=== PATIENT | male | born 1950 | race Caucasian/White ===

== ENCOUNTER 2019-10-24 17:06 | Inpatient (IN) | payer MEDICARE ==
[~2019-10-24] VITALS: Ht 170.2 cm; Wt 88.6 kg
[2019-10-24 17:20] VITALS: BP 119/51
[2019-10-24] MEDS ORDERED: ELIQUIS5 MG PO (17:37)
[2019-10-24 18:18] LABS: ABSOLUTE LYMPHOCYTES 0.7 thou/uL (0.8-5.3); ABSOLUTE MONOCYTES 0.9 thou/uL (0.0-1.2); ABSOLUTE NEUTROPHILS 8.5 thou/uL (1.6-8.1); BASOPHILS 0.4 %; HEMATOCRIT 38.2 % (42.0-52.0); HEMOGLOBIN 13.6 gm/dL (14.0-18.0); LYMPHOCYTES 6.6 %; MCH 31.3 pg (26.0-34.0); MCHC 35.5 g/dL (28.0-37.0); MCV 88.2 fL (80.0-100.0); MONOCYTES 8.5 %; MPV 8.7 fl. (7.2-11.1); NUCLEATED RBCS 0 /100WBC; PLATELET COUNT* 144 thou/uL (150-400); POLYS 84.5 %; RBC 4.33 mil/uL (4.50-6.00); RDW-CV 13.7 % (10.5-14.5); WBC 10.1 thou/uL (4.0-11.0)
[2019-10-24 18:29] LABS: CALCIUM 8.8 mg/dL (8.5-10.1); CREATININE 1.8 mg/dL (0.6-1.3); POTASSIUM 3.2 mmol/L (3.5-5.1)
[2019-10-24 18:31] LABS: APTT 37.5 Seconds (25.0-31.3); INR 1.1; PROTIME 10.8 Seconds (9.20-11.50)
[2019-10-24 18:34] LABS: ALBUMIN 3.3 g/dL (3.4-5.0); TOTAL PROTEIN 8.2 g/dL (6.4-8.2)
[2019-10-24 20:56] LABS: URINE BILIRUBIN NEGATIVE (Negative); URINE BLOOD 2+ (Negative); URINE CLARITY SL CLOUDY; URINE COLOR YELLOW; URINE GLUCOSE-RANDOM NEGATIVE (Negative); URINE KETONES NEGATIVE (Negative); URINE LEUKOCYTES-REFLEX 1+ (Negative); URINE NITRITE-REFLEX NEGATIVE (Negative); URINE PROTEIN 2+ (Negative); URINE SPECIFIC GRAVITY 1.015 (1.005-1.030)
[2019-10-24 21:01] LABS: MAGNESIUM 1.6 mg/dL (1.8-2.4)
[2019-10-24 21:02] LABS: AMP/METHAMP Negative (Negative); BARBITURATES Negative (Negative); BENZODIAZEPINES Negative (Negative); COCAINE Negative (Negative); METHADONE Negative (Negative); OPIATES Negative (Negative); PCP Negative (Negative); THC Negative (Negative)
[2019-10-24 21:05] LABS: HYALINE CASTS 0-3 Few /LPF (None Seen); URINE WBC-REFLEX >25 Many /HPF (0-5)
[2019-10-24 21:07] LABS: CRYSTALS None Seen /LPF (None Seen); SQUAMOUS 0-3 Few /LPF (0-3); URINE RBC 0-2 Rare /HPF (0-2)
[2019-10-24 21:09] LABS: COARSE GRANULAR CASTS 0-3 Few /LPF (None Seen); FINE GRANULAR CASTS 0-3 Few /LPF (None Seen)
[2019-10-24 21:49] VITALS: BP 113/78
[2019-10-24 21:59] VITALS: BP 130/71
[2019-10-25 00:32] VITALS: BP 137/75
[2019-10-25 04:30] VITALS: BP 151/78
--- NOTE | 2019-10-25 06:20 | NUR ---
REPORT RECIEVED FROM ER. PT ORIENTED TO ROOM, CALL LIGHT SHOWN, FALL AGREEMENT WENT OVER, PT STATED UNDERSTANDING. ADMISSION DOCUMENTED. IV PATENT. TYLENOL GIVEN PER E-MAR FOR HEADACHE. WILL CONTINUE WITH PLAN OF CARE.
[2019-10-25] MEDS ORDERED: METFORMIN HCL500 M3 (06:34)
--- NOTE | 2019-10-25 06:34 | NUR ---
UNABLE TO COMPLETE PTS MED REC PT DOES NOT REMEMBER THE MEDICATIONS AND DOSES HE TAKES.
[2019-10-25 08:16] VITALS: BP 127/60
[2019-10-25] MEDS ORDERED: GLIMEPIRIDE4 MG PO (09:37)
[2019-10-25] MEDS ORDERED: NEURONTIN 300M300 M2 PO (09:37)
[2019-10-25] MEDS ORDERED: COZAAR 25 MG TA25 M1 PO (09:38)
[2019-10-25] MEDS ORDERED: METFORMIN HCL500 M3 PO (09:38)
[2019-10-25] MEDS ORDERED: TRIAMTERENE/HCT1 CA1 PO (09:39)
[2019-10-25] MEDS ORDERED: PRAVASTATIN SOD80 MG PO (09:39)
--- NOTE | 2019-10-25 13:16 | NUR ---
Nutrition: Pt admitted withviral resp illness, COVID pending. Assessed for nsg risk 2 points. Spoke with RN: she stated pt is eating well, pt has not voiced any wt loss. BG in 200s, albumin 3.3. Hx, meds noted. CHO controlled diet ordered. Wt: 176#. No nutrition interventions needed at this time. RD available. Low nutrition risk.
--- NOTE | 2019-10-25 13:32 | EKG ---
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 : 1950 Requested By: Niesha Hendricks Order Number: [id number] MD: Kel Perdomo Measurements Intervals [place] Rate: 103 P: 34 MI: 150 QRS: -57 QRSD: 99 T: 75 QT: 381 QTc: 499 Interpretive Statements Sinus rhythm with ventricular trigeminy nonsustained Ventricular tachycardia, Left anterior fascicular block Abnormal R-wave progression, late transition No previous ECG available for comparison Electronically Signed On 10-25-2019 13:30:45 CDT by Kel Perdomo [email or web address] <ELECTRONICALLY SIGNED> By: Kel Perdomo MD, [facility] 10/25/19 1330 1746 1746 Kel Perdomo MD, [facility] /EPI
[2019-10-25 14:06] VITALS: BP 169/78
--- NOTE | 2019-10-25 16:26 | NUR ---
PATIENT REMAINS COVID PENDING. UP AD SETH. IVF INFUSING. PATIENT GIVEN TYLENOL PRN X 1 FOR COMFORT. INSULIN GIVEN WITH MEALS WHEN REQUIRED. ECHO RESULTS HERE FROM [facility], CALLED TO SUSHIL CONTRERAS FROM CARDIOLOGY. NOTIFIED OF ELEVATED BP THIS AFTERNOON, MEDS TO START AT HS. PATIENT AFIBB THIS AM, CARDIOLOGY AWARE. 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 CARDIOLOGY IS AWARE OF THESE FINDINGS. POTASSIUM LEVEL FROM PREVIOUS SHIFT REPLACMENT IS 3.9.
[2019-10-25 20:20] VITALS: BP 126/58
[2019-10-26 00:30] VITALS: BP 109/58
--- NOTE | 2019-10-26 03:53 | NUR ---
ASSUMED CARE OF PT AT 1900. PT IS ALERT AND ORIENTED. VSS. PERRLA. PT IS UP AD SETH. PT IS IN SINUS RYTHM WITH FREQUENT PVC'S. PT IS SLEEPING COMFORTABLY IN BED. RESPIRATIONS ARE EVEN AND NONLABORED. WILL CONTINUE TO MONITOR PT.
[2019-10-26 04:39] VITALS: BP 122/60
[2019-10-26 05:56] LABS: HEMATOCRIT 31.7 % (42.0-52.0); MCH 31.8 pg (26.0-34.0); MCHC 35.7 g/dL (28.0-37.0); MCV 89.1 fL (80.0-100.0); MPV 9.6 fl. (7.2-11.1); RBC 3.55 mil/uL (4.50-6.00); RDW-CV 14.1 % (10.5-14.5); WBC 8.8 thou/uL (4.0-11.0)
[2019-10-26 05:58] LABS: HEMOGLOBIN 11.3 gm/dL (14.0-18.0)
[2019-10-26 06:11] LABS: CALCIUM 8.1 mg/dL (8.5-10.1); CREATININE 1.7 mg/dL (0.6-1.3); MAGNESIUM 1.9 mg/dL (1.8-2.4); POTASSIUM 3.2 mmol/L (3.5-5.1)
[2019-10-26 06:18] LABS: CHOLESTEROL 117 mg/dL (<200); HDL CHOLESTEROL 28 mg/dL (>40); LDL CHOLESTEROL 66 mg/dL (<100); TC:HDL 4.2 Ratio (Not establshd); TRIGLYCERIDE 118 mg/dL (<150); VLDL 24 mg/dL (<40)
[2019-10-26 06:22] LABS: SERUM ASSESSMENT Clear
[2019-10-26 08:35] VITALS: BP 124/68
--- NOTE | 2019-10-26 11:51 | NUR ---
NOTIFIED PT.WAS OUT OF NETWORK AND NO OON BENEFITS. NOTIFIED NONA GIL. BLOOD CXS 1/2 RESULTED POSITIVE. SHE GAVE OK TO TRANSFER. KATIE CALLED PT.IN ROOM. AT FIRST HE DID NOT UNDERSTAND WHY HE NEEDED TO TRANSFER. SAID HE WOULD JUST GO HOME. EXPLAINED AGAIN AND POSITIVE BLOOD CX. HE DID NOT WANT ME TO CALL HIS NIECE AT THIS TIME. GAVE HIM A CHOICE OF [facility] FACILITIES. HE CHOSE [place]. KATIE CALLED [facility] [phone] AND GAVE INFORMATION . FAXED H&P,CONSULTS,LABS,CULTURES,AND NEG.COVID TEST TO [phone]. INFORMED OF TELE BED NEEDED.
--- NOTE | 2019-10-26 16:00 | NUR ---
INSURANCE CALLED AND STATED PT.DID NOT NEED TO TRANSFER TO ANOTHER FACILITY. THEY LOOK AT EACH ON CASE BY CASE BASIS. CM NOTIFIED PT.AND CALLED [facility]. SPOKE WITH ROXANA AND TOLD HIM TO CANCEL REQUEST FOR TRANSFER.
[2019-10-26 16:24] VITALS: BP 118/70
--- NOTE | 2019-10-26 17:20 | NUR ---
PT UP AD SETH. DENIES PAIN. PROGRESSING TOWARDS GOALS.
[2019-10-26 21:00] VITALS: BP 125/72
[2019-10-27 00:32] VITALS: BP 129/59
[2019-10-27 04:54] VITALS: BP 143/71
--- NOTE | 2019-10-27 05:44 | NUR ---
RECEIVED REPORT FROM RICKY SHARMA AT 2034. PT ARRIVED TO UNIT VIA WHEELCHAIR WITH BELONGINGS FROM ROOM 105 AT 2044. NURSING ASSESSMENT COMPLETED AT START OF SHIFT. SR PVCS ON PRESIDENT ERGONOMIC CONSULTING. HOURLY ROUNDING COMPLETED. CALL LIGHT WITHIN REACH.
--- NOTE | 2019-10-27 07:05 | NUR ---
CHANGE OF SHIFT, BEDSIDEW REPORT GIVEN PATIENT SEEN AT BEDSIDE, IN BED ASLEEP ASSUMED PATIENT CARE
[2019-10-27 08:00] VITALS: BP 125/63
--- NOTE | 2019-10-27 09:37 | NUR ---
Per PHOTOGRAPH TINTER, ID consulted, awaiting cultures. Stress test tomorrow.
--- NOTE | 2019-10-27 10:13 | EKG ---
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1950 Requested By: Nataliya Newton Order Number: [id number] Reading MD: Kel Perdomo Measurements Intervals [place] Rate: 59 P: 65 NC: 173 QRS: -47 QRSD: 107 T: 55 QT: 474 QTc: 470 Interpretive Statements Sinus rhythm LAD, consider left anterior fascicular block Compared to ECG 10/24/2019 17:46:33 Ventricular premature complex(es) no longer present Ventricular tachycardia no longer present Electronically Signed On 10-27-2019 10:11:42 CDT by Kel Perdomo [email or web address] <ELECTRONICALLY SIGNED> By: Kel Perdomo MD, [facility] 10/27/19 1011 7 Kel Perdomo MD, [facility] /EPI
--- NOTE | 2019-10-27 11:07 | EKG ---
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: : 1950 Requested By: Do Torrez Order Number: [id number] Verena MD: Eyal Camp Measurements Intervals [place] Rate: 59 P: 66 KS: 161 QRS: -48 QRSD: 106 T: 51 QT: 463 QTc: 459 Interpretive Statements Sinus rhythm Ventricular premature complexes Incomplete RBBB and LAFB Baseline wander in lead(s) V6 Compared to ECG 10/24/2019 17:46:33 Incomplete right bundle-branch block now present Right bundle-branch block now present Ventricular tachycardia no longer present Electronically Signed On 10-27-2019 11:04:48 CDT by Eyal Camp [email or web address] <ELECTRONICALLY SIGNED> By: Eyal Camp MD, [facility] 10/27/19 1104 1330 1330 Eyal Camp MD, [facility] /EPI
[2019-10-27 12:00] VITALS: BP 133/60
--- NOTE | 2019-10-27 12:02 | 2DMMODE ---
[place] [address] 2 D/M-MODE ECHOCARDIOGRAM Name: MELANIE CASTILLO Room: [address] IN .R.#: [id number] Admission: 10/24/19 Attend Phys: Franklin Conte, Discharge: Date of : 46 Date of Service: 10/27/19 1200 Report #: [id number] THIS REPORT FOR: cc: Martha Cordoba Anna S. DO Liston, Michael J. MD [facility] ~ APPROVED REPORT Study performed: 10/27/2019 09:28:53 EXAM: Comprehensive 2D, Doppler, and color-flow Echocardiogram Patient Location: In-Patient BSA: 1.97 HR: 61 bpm BP: 143/71 mmHg Other Information Study Quality: Fair Indications Elevated Troponin Bacteremia, Viral Respiratory Illness 2D Dimensions IVSd: 19.50 (7-11mm) LVOT Diam: 23.01 (18-24mm) LVDd: 44.27 mm PWd: 12.42 (7-11mm) Ascending Ao: 41.56 (22-36mm) LVDs: 35.71 (25-40mm) Aortic Root: 33.86 mm Volumes Left Atrial Volume (Systole) LA ESV Index: 34.10 mL/m2 Aortic Valve AoV Peak Bro.: 1.51 m/s AO Peak Gr.: 9.14 mmHg LVOT Max P.24 mmHg AO Mean Gr.: 5.39 mmHg LVOT Mean P.29 mmHg LVOT Max V: 1.03 m/s AO V2 VTI: 31.66 cm LVOT Mean V: 0.71 m/s MARIANA (VTI): 3.52 cm2 LVOT V1 VTI: 26.85 [place] [address] 2 D/M-MODE ECHOCARDIOGRAM Name: ANNAMELANIE MCGOWAN Room: [address] IN M.R.#: [id number] Admission: 10/24/19 Attend Phys: Franklin Conte, Discharge: Date of : 46 Date of Service: 10/27/19 1200 Report #: [id number] E/A Ratio: 1.71 MV Decel. Time: 161.61 ms MV E Max Bro.: 0.96 m/s MV PHT: 46.87 ms MVA (PHT): 4.69 cm2 TDI E/Lateral E': 6.86 E/Medial E': 10.67 Medial E' Bro.: 0.09 m/s Lateral E' Bro.: 0.14 m/s Pulmonary Valve PV Peak Bro.: 0.74 m/s PV Peak Gr.: 2.21 mmHg Tricuspid Valve RAP Estimate: 20.00 mmHg TR Peak Gr.: 28.03 mmHg RVSP: 48.03 mmHg PA Pressure: 48.03 mmHg Left Ventricle The left ventricle is normal size. There is normal LV segmental wall motion. There is normal left ventricular wall thickness. Left ventricular systolic function is normal. LVEF is 55-60%. Transmitral Doppler flow pattern suggests impaired LV relaxation. Right Ventricle Right ventricle is mildly dilated. The right ventricular systolic function is normal. Atria Left atrium is mildly dilated. The right atrium size is normal. Aortic Valve The Aortic valve is sclerotic. No aortic regurgitation is present. There is no aortic valvular stenosis. Mitral Valve The mitral valve is normal in structure. Trace mitral regurgitation. No evidence of mitral valve stenosis. Tricuspid Valve The tricuspid valve is normal in structure. Trace tricuspid regurgitation. The RVSP is 30-35 mmHg[place] [address] 2 D/M-MODE ECHOCARDIOGRAM Name: MELANIE CASTILLO Room: [address] IN [facility]#: [id number] Admission: 10/24/19 Attend Phys: Franklin Conte, Discharge: Date of : 46 Date of Service: 10/27/19 1200 Report #: [id number] The pulmonary valve is normal in structure. There is no pulmonic valvular regurgitation. Great Vessels The aortic root is normal in size. The ascending aorta is mildly dilated. (4.16 cm) IVC is dilated and collapses >50% with inspiration. Pericardium There is no pericardial effusion. <Conclusion> The left ventricle is normal size. There is normal left ventricular wall thickness. Left ventricular systolic function is normal. LVEF is 55-60%. Transmitral Doppler flow pattern suggests impaired LV relaxation. Right ventricle is mildly dilated. Left atrium is mildly dilated. The Aortic valve is sclerotic. There is no aortic valvular stenosis. Trace mitral regurgitation. Trace tricuspid regurgitation. The RVSP is 30-35 mmHg. IVC is dilated and collapses >50% with inspiration. The ascending aorta is mildly dilated. (4.16 cm) <ELECTRONICALLY SIGNED> By: Eyal Camp MD, FACC 10/27/19 1200 1200 99 Eyal Camp MD, FACC /INF
--- NOTE | 2019-10-27 14:00 | NUR ---
SPOKE WITH PT.IN ROOM. HE WAS ALERT AND ORIENTED. STATED HE LIVES ALONE. HIS NIECE,TRIP, LIVES ACROSS THE STREET FROM HIM. NO USE OF DME OR HOME HEALTH/SNF. TRIP IS SUPPORTIVE. CM WILL FOLLOW.
[2019-10-27 17:16] VITALS: BP 165/60
[2019-10-27 20:00] VITALS: BP 143/61
[2019-10-28 00:29] VITALS: BP 134/64
[2019-10-28 04:30] VITALS: BP 143/69
--- NOTE | 2019-10-28 06:54 | NUR ---
PATIENT PROGRESSING TOWARDS GOALS: PATIENT DENIES PAIN AND DISCOMFORT. A&OX4, FORGETFUL AT TIMES. PATIENT UP AD SETH WITH NO COMPLICATIONS. NPO FOR STRESS TEST TODAY. CALL LIGHT WITHIN REACH
[2019-10-28 07:30] VITALS: BP 140/62
--- NOTE | 2019-10-28 07:34 | CON ---
[address] [address] CONSULTATION Name: MELANIE CASTILLO Room: [address] ADM IN M.R.#: [id number] Admission: 10/24/19 Attend Phys: Franklin Conte MD Discharge: Date of : 46 Report #: [id number] THIS REPORT FOR: //name// cc: Martha Cordoba Anna S. DO ~ THIS REPORT FOR: //name// CC: Martha Conte DATE OF SERVICE: 10/27/2019 INFECTIOUS DISEASE CONSULTATION ATTENDING PHYSICIAN: Franklin Conte MD REASON FOR EVALUATION: Staphylococcus aureus septicemia, pyelonephritis. HISTORY OF PRESENT ILLNESS: Chart reviewed, patient examined. This is a 69-year-old gentleman with history of atrial fibrillation, who has been ill for roughly a week prior to his admission on 10/23, had onset of fevers, associated upper respiratory tract symptoms, cough, some generalized weakness, subsequently developed some nausea, lower abdominal pain. He was evaluated in the Emergency Room, he was found to have marked pyuria. CT evidence of bilateral inflammatory changes noted in the perirenal sites. Tentatively diagnosed with pyelonephritis. Blood culture 1 out of 2 came back with Staphylococcus aureus. Chest x-ray showed no acute process. Inflammatory markers were mildly elevated. He did have an echo, which did not show any valvular vegetations. He was empirically started on ceftriaxone. Vancomycin was added this morning with positive cultures. He is mildly encephalopathic at this point. Denies significant amount of gastrointestinal-related complaints. He is mildly dyspneic. Depressed appetite. ALLERGIES: NAPROXEN AND BUPROPION. CURRENT MEDICATIONS: Include diltiazem, ceftriaxone, vancomycin, sotalol, atorvastatin, glimepiride, gabapentin, apixaban, p.r.n. analgesics, antiemetics. PAST MEDICAL HISTORY: Atrial fibrillation, history of macular degeneration, carpal tunnel surgeries. SOCIAL HISTORY: Long-time smoker, 53-gwqa-zpsy history. Occasional ethanol. No illicit drug use. FAMILY HISTORY: [place] [address] CONSULTATION Name: MELANIE CASTILLO Room: [address] IN [facility]#: [id number] Admission: 10/24/19 Attend Phys: Franklin Conte MD Discharge: Date of : 46 Report #: [id number] REVIEW OF SYSTEMS: Otherwise, unremarkable 10-point review of systems. PHYSICAL EXAMINATION: GENERAL: He appears somewhat chronically ill with acute component, qffv-qh-ovvnkqus distress, appears slightly undernourished. VITAL SIGNS: Temperature 97, pulse 55, respirations 17, blood pressure 125/63. SKIN: Warm, dry. HEENT: Normocephalic. Extraocular muscles intact. NECK: Supple. LUNGS: Diminished breath sounds. HEART: Borderline bradycardic. It is regular. I do not appreciate a murmur. ABDOMEN: Soft, nontender, nondistended. EXTREMITIES: No cyanosis. GENITOURINARY AND RECTAL: Deferred. LABORATORY DATA: Initial CBC: White count of 10.1, H and H of 13.6 and 38.2, borderline lymphocytopenia of 700, platelet count of 144. Sodium 134, potassium 3.2, chloride 98, bicarbonate is 24, anion gap of 12, BUN and creatinine of 28 and 1.8, glucose of 214. LFTs unremarkable. Albumin of 3.3, total protein of 8.2. D-dimer elevated at 3.11. Troponin 0.07. Lactic acid of 2.1, repeat was 1.9. CT chest showed no acute pulmonary issues. CT abdomen and pelvis showed bilateral inflammatory changes, question of pyelonephritis, also had question of cirrhosis. Alcohol and drug screen were both negative. Urinalysis did show greater than 25 white cells, 10-30 bacteria. CRP of 247.3. Virus testing was negative. Blood cultures 1 out of 2 with Staph aureus. Urine culture with Staph aureus as well. ASSESSMENT AND PLAN: Staphylococcus aureus septicemia. The patient is not entirely clear nor that there has any been instrumentation of the genitourinary tract. Often at times, urine culture that is positive is a spillage from the septicemia. It is not clear as if the source would presume the skin initially. We will continue the vancomycin pending the susceptibility testing. Repeat blood cultures. May need to consider transesophageal echo as well. At this point, he is scheduled to have a stress test. Instructed him to let us know if there are any new signs or symptoms that we could pursue as a possible site of seeding from the septicemia. We will add incentive spirometry. <ELECTRONICALLY SIGNED> By: Michael Medel MD 10/28/19 0734 1328 1429Jojolie Medel MD /nt
[2019-10-28 12:48] VITALS: BP 142/53
--- NOTE | 2019-10-28 15:50 | NUR ---
Per , ID consulted, Pt had 4 positive blood cultures. On vanc. Stress test today.
[2019-10-28 17:22] VITALS: BP 139/56
--- NOTE | 2019-10-28 17:25 | CARDNUC ---
[place] [address] CARDIAC NUCLEAR IMAGING REPORT Name: MELANIE CASTILLO Room: [address] IN [facility]#: [id number] Admission: 10/24/19 Attend Phys: Franklin Conte, Discharge: Date of : 46 Date of Service: 10/28/19 1722 Report #: [id number] THIS REPORT FOR: cc: Martha Cordoba,Martha Samayoa,Eyal Smith MD [facility] ~ APPROVED REPORT Imaging Protocol: Stress Tc-99m/Rest Tc-99m 1 day Study performed: 10/27/2019 09:27:00 Indication: Troponin elevation Patient Location: In-Patient Stress Tech: Ansley Abreu Stress Nurse: Debbie Crane RN Ht: 5 ft 7 in Wt: 187 lbs BSA: 1.97 m2 BMI: 29.28 Medical History Medical History: Atrial Fibrillation, HTN, Hyperlipidemia, Diabetes Medications: apixaban, diltiazem, sotalol, atorvastatin Allergies: naproxen, bupropion Cardiac Risk Factors: Age, HTN, Hyperlipidemia, DM, Current Smoker Exercise History: Indeterminate Resting Data Rest SPECT myocardial perfusion imaging was performed in supine position 40 minutes following the intravenous injection of 10.1 mCi of Tc-99m Sestamibi. Time of rest injection: 08:30 The images were gated to evaluate regional wall motion and calculate left ventricular ejection fraction. Administration Route: IV Administration Site: Left Arm Pharmacologic Stress Pharmacologic stress test was performed by injecting Regadenoson 0.4 mg IV push over 10-15 seconds immediately followed by the intravenous injection of 33.1 mCi of Tc-99m Sestamibi. Time of stress injection: 10:10 Administration Route: [place] [address] CARDIAC NUCLEAR IMAGING REPORT Name: ANNALORNAMELANIE Room: [address]#: [id number] Admission: 10/24/19 Attend Phys: Franklin Conte, Discharge: Date of : 46 Date of Service: 10/28/19 1722 Report #: [id number] Administration Site: Left Arm Heart Rate at time of stress injection: 65 bpm. Gated Stress SPECT was performed 45 minutes after stress injection. The images were gated to evaluate regional wall motion and calculate left ventricular ejection fraction. Stress Test Details Stress Test: Pharmacologic stress testing performed using 0.4 mg of regadenoson per 5 mL given IV over 10 seconds. Reason for pharmacologic stress test: physical limitation. HR Max Heart Rate (APMHR): 149 bpm Resting HR: 59 bpm Target HR (85% APMHR): 126 bpm Max HR Achieved: 67 bpm % of APMHR: 44 Recovery HR: 67 bpm BP Resting BP: 130/64 mmHg Max BP: 145/67 mmHg Recovery BP: 142/66 mmHg ECG Resting ECG: Sinus Rhythm Stress ECG: Sinus Rhythm ST Change: None Arrhythmia: None Recovery ECG: Sinus Rhythm Recovery ST Change: None Recovery Arrhythmia: None Clinical Reason for Termination: Completed protocol The patient tolerated Lexiscan infusion without cardiac symptoms. Nurse Comments pt unable to walk on teadmill due to weakness and unsteady gait Stress ECG Conclusion The baseline twelve-lead EKG shows sinus rhythm without significant ST segment or T wave abnormality. EKGs obtained during and post Lexiscan infusion show sinus rhythm with no significant ST segment changes when compared to baseline. There were no [place] [address] CARDIAC NUCLEAR IMAGING REPORT Name: SOREN CASTILLOIFFORD Room: [address] IN [facility].#: [id number] Admission: 10/24/19 Attend Phys: Franklin Conte, Discharge: Date of : 46 Date of Service: 10/28/19 1722 Report #: [id number] Study Quality Study: Fair Artifact: Mild Diaphragmatic artifact Study Data At rest, the left ventricular ejection fraction was 54%.. Post stress, the left ventricular ejection was 56%.. TID = 1.13. Perfusion There is a fixed defect involving the mid to apical inferior wall. Basal inferior wall not well evaluated due to diaphragmatic attenuation artifact. No frankly reversible defects are identified. Wall Motion Basal to distal inferior wall appears hypokinetic. Global LV systolic function mildly decreased. 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 No reversible defects are identified. This is not a high risk study. <Conclusion> The baseline twelve-lead EKG shows sinus rhythm without significant ST segment or T wave abnormality. EKGs obtained during and post Lexiscan infusion show sinus rhythm with no significant ST segment changes when compared to baseline. There were no stress-induced arrhythmias. <ELECTRONICALLY SIGNED> By: Eyal Camp MD, FACC 10/28/191721 21 21 Eyal Camp MD, FACC /INF
[2019-10-28 20:00] VITALS: BP 148/61
[2019-10-29 00:15] VITALS: BP 138/55
[2019-10-29 04:45] VITALS: BP 130/58
--- NOTE | 2019-10-29 05:29 | NUR ---
PATIENT PROGRESSING TOWARDS GOALS: PATIENT DENIES PAIN AND DISCOMFORT. PATIENT REMAINS UP INDEPENDENTLY IN ROOM. ANTICIPATING DISCHARGE HOME WITHIN A FEW DAYS. CALL LIGHT WITHIN REACH
[2019-10-29 08:00] VITALS: BP 144/76
[2019-10-29 12:00] VITALS: BP 147/69
[2019-10-29 16:11] VITALS: BP 157/58
[2019-10-29 19:30] VITALS: BP 158/71
--- NOTE | 2019-10-29 19:34 | NUR ---
ASSUMED PT CARE AT 0730, FULL ASSESSMENT DONE CHARTED. PT A/O X4, IS FORGETFUL AT TIMES. HE WAS FOUND TO HAVE URINATED IN HIS PATIENT BUCKET AND STATES "I DIDN'T WANT TO DRAG THAT THING IN THERE" POINTING TO THE IV POLE. HE WAS EDUCATED ON CALLING STAFF FOR HELP AND THAT THE IV POLE CAN BE TAKEN INTO THE BATHROOM. HE WAS PROVIDED WITH A URINAL. VSS, MADE M/S TODAY. UP AD SETH, ATTEMPTED TO HAVE PATIENT REMOVE JEANS, PT REFUSED SEVERAL TIMES. PT HOPEFUL TO GO HOME SOON.
[2019-10-30 00:50] VITALS: BP 134/55
[2019-10-30 04:37] LABS: HEMATOCRIT 32.6 % (42.0-52.0); HEMOGLOBIN 11.2 gm/dL (14.0-18.0); MCH 31.2 pg (26.0-34.0); MCHC 34.4 g/dL (28.0-37.0); MPV 8.5 fl. (7.2-11.1); RBC 3.59 mil/uL (4.50-6.00); RDW-CV 14.1 % (10.5-14.5)
[2019-10-30 04:42] LABS: CALCIUM 8.7 mg/dL (8.5-10.1); CREATININE 1.1 mg/dL (0.6-1.3); MAGNESIUM 1.7 mg/dL (1.8-2.4); POTASSIUM 3.8 mmol/L (3.5-5.1)
--- NOTE | 2019-10-30 05:00 | NUR ---
PATIENT PROGRESSING TOWARDS GOALS: PATIENT DENIES PAIN AND DISCOMFORT THIS SHIFT. PATIENT ORIENTED X4, DID NOT APPEAR TO HAVE ANY EPISODES OF CONFUSION THIS SHIFT. REMAINS ON ROOM AIR WITH SATS >92%. CALL LIGHT WITHIN REACH
[2019-10-30 12:00] VITALS: BP 146/86; BP 148/67
[2019-10-30 16:00] VITALS: BP 170/74
--- NOTE | 2019-10-30 19:44 | NUR ---
PT STABLE, NO C/O PAIN, UP AD SETH, WANTS TO GO HOME. CHECK ON PT FREQUENTLY HE DOES NOT ALWAYS USE CALL LIGHT FOR NEEDS. A/O X4 WITH SOME FORFETFULNESS. VSS, M/S. BILAT FEET EDEMA, PT WILL ELEVATE LEGS WHEN REMINDED. REPORT GIVEN TO JOSH GARCÍA.
[2019-10-30 20:00] VITALS: BP 147/85
--- NOTE | 2019-10-31 05:38 | NUR ---
PT SLEPT MOST OF SHIFT. ASSESSMENT DOCUMENTED. MEDS GIVEN PER E-JUL. IV PATENT, ABX INFUSED. NO REPORTS OF PAIN THIS SHIFT. WILL CONTINUE WITH PLAN OF CARE.
[2019-10-31 07:20] VITALS: BP 139/70
--- NOTE | 2019-10-31 09:21 | NUR ---
CM spoke with Pt regarding dispo, Pt plans on returning home at nd. Cm discussed possible need for home IVABX, Pt states that between himself and his neighbor he will be able to manage home IVABX. CM to fax referral to [facility] to have them cost Pt's home infusion coverage. Following.
--- NOTE | 2019-10-31 11:52 | NUR ---
ZYVOX 600MG PO BID,#28 CALLED INTO [facility] [phone]. IT REQUIRED A PRIOR AUTH. SPOKE WITH PHARMACIST AT [facility]. SHE WOULD NOT AUTHORIZE, THERE WAS NO MEDICALLY ACCEPTED INDICATION FOR THIS DRUG. NO VRE OR NO MRSA. [facility] INFORMED.
[2019-10-31 13:06] VITALS: BP 139/70
[2019-10-31] MEDS ORDERED: SORINE 80 MG TA80 MG PO (13:11)
[2019-10-31] MEDS ORDERED: ZYVOX600 MG PO (13:16)
== END 2019-10-31 15:05 | disposition home or self-care (01) | DRG 871 ==
LOC: M.ERS 17:06 → M.TBA-ER 20:27 → M.ORTHSURG 20:27 → M.2W 10-26 20:52
PROVIDERS: Nurse Practitioner Family; Registered Nurse; ADMIT Internal Medicine; ATTEND Internal Medicine
DX: A41.01 Sepsis due to Methicillin susceptible Staphylococcus aureus (principal); N17.0 Acute kidney failure with tubular necrosis; N12 Tubulo-interstitial nephritis, not specified as acute or chronic; D68.69 Other thrombophilia; I48.92 Unspecified atrial flutter; N40.1 Benign prostatic hyperplasia with lower urinary tract symptoms; R33.8 Other retention of urine; E87.6 Hypokalemia; I48.0 Paroxysmal atrial fibrillation; F17.210 Nicotine dependence, cigarettes, uncomplicated; I25.10 Atherosclerotic heart disease of native coronary artery without angina pectoris; E78.5 Hyperlipidemia, unspecified; E11.9 Type 2 diabetes mellitus without complications; I10 Essential (primary) hypertension; R79.89 Other specified abnormal findings of blood chemistry; K76.0 Fatty (change of) liver, not elsewhere classified; K74.60 Unspecified cirrhosis of liver; Z20.828 Contact with and (suspected) exposure to other viral communicable diseases; Z79.01 Long term (current) use of anticoagulants; Z88.8 Allergy status to other drugs, medicaments and biological substances; Z79.84 Long term (current) use of oral hypoglycemic drugs; Z72.89 Other problems related to lifestyle